=== PATIENT | female | born 1990 | race Caucasian/White ===

== ENCOUNTER → 2018-05-29 | Outpatient (CLI) | payer OTHER | END | disposition home or self-care (01) | LOC: LAB 09:50 → LAB SHORT 09:50 | DX: Z34.00 Encounter for supervision of normal first pregnancy, unspecified trimester (principal) | CPT/HCPCS: 87081; 87653 ==

== ENCOUNTER 2018-06-29 12:56 | Inpatient (IN) | payer OTHER ==
[~2018-06-29] VITALS: Ht 165.1 cm; Wt 0.4 kg
[2018-06-29 14:56] LABS: Creatinine, Urine Random 58.2 mg/dL (27.00-270.00); Protein, Urine Random 24.4 mg/dL (0.0-11.9); Protein/Creat Ratio, Ur Random 0.4
[2018-06-29 15:00] LABS: BASOPHILS ABSOLUTE AUTO 0.03 K/mm3 (0.00-0.23); BASOPHILS PERCENT AUTO 0 % (0-2); EOSINOPHILS ABSOLUTE AUTO 0.05 K/mm3 (0.00-0.68); EOSINOPHILS PERCENT AUTO 0 % (0-6); Hemoglobin 13.7 g/dL (11.5-16.0); IMMATURE GRAN PERCENT AUTO 1 % (0-1); LYMPHOCYTES ABSOLUTE AUTO 2.03 K/mm3 (0.84-5.20); LYMPHOCYTES PERCENT AUTO 16 % (21-46); MONOCYTES PERCENT AUTO 5 % (4-13); Mean Corpuscular HGB Conc 34.3 g/dL (31.5-36.5); Mean Corpuscular Volume 91 fL (80-100); NEUTROPHILS ABSOLUTE AUTO 9.99 K/mm3 (1.96-9.15); NEUTROPHILS PERCENT AUTO 78 % (41-73); Platelet Count 238 K/mm3 (150-400); RDW Coefficient Variation 12.9 % (11.7-14.2); RDW Standard Deviation 42.4 fL (35.1-46.3); Red Blood Cell Count 4.42 M/mm3 (3.80-5.20)
[2018-06-29 15:10] LABS: Alanine Aminotransfer (ALT/SGP 23 U/L (12-78); Albumin, Blood 2.7 g/dL (3.4-5.0); Albumin/Globulin Ratio 0.7 (0.8-1.8); Alk Phos 197 U/L (50-136); Anion Gap 9 mmol/L (6-16); Aspartate Aminotrans (AST/SGOT 10 U/L (12-37); Bilirubin, Total 0.2 mg/dL (0.1-1.0); Blood Urea Nitrogen 8 mg/dL (8-24); Bun/Creatinine Ratio 14.2 (12.0-20.0); CO2, Blood 24 mmol/L (21-32); Calcium, Blood 8.9 mg/dL (8.5-10.1); Chloride, Blood 109 mmol/L (98-108); Creatinine, Blood 0.57 mg/dL (0.40-1.00); Globulin, Blood 4.1 g/dL (2.2-4.0); Glomerular Filtration Rate >60 (60-); Glucose, Blood 87 mg/dL (70-99); Potassium, Blood 3.5 mmol/L (3.5-5.5); Sodium, Blood 142 mmol/L (136-145); Total Protein, Blood 6.8 g/dL (6.4-8.2)
[2018-06-29] MEDS ORDERED: Verotin-Gr Cap1 EACH PO (16:59)
[2018-07-01 06:12] LABS: Hematocrit 32.7 % (33.0-51.0); Hemoglobin 11.1 g/dL (11.5-16.0); Mean Corpuscular HGB 30.4 pg (26.0-34.0); Mean Corpuscular HGB Conc 33.9 g/dL (31.5-36.5); Mean Corpuscular Volume 90 fL (80-100); Mean Platelet Volume 11.1 fL (9.1-12.4); Platelet Count 206 K/mm3 (150-400); RDW Coefficient Variation 13.4 % (11.7-14.2); RDW Standard Deviation 43.9 fL (35.1-46.3); Red Blood Cell Count 3.65 M/mm3 (3.80-5.20); White Blood Cell Count 18.86 K/mm3 (4.00-11.30)
--- NOTE | 2018-07-01 10:52 | NUR ---
CONSULT. BABY IS WAKING MORE FOR FEEDINGS, ABOUT 24 HOURS OLD NOW. MOMS NIPPLES ARE QUITE SORE. BABY HAS A STRONG SUCK WHEN COORDINATED ON A FINGER, BUT STARTS OUT BITING AND TONGUE SUCKING. INSTRUCT/DEMO POSITIONING TO HELP OBTAIN A DEEPER ASYMETRIC LATCH AND FURTHER WIDEN THE LATCH UNTIL COMFORTABLE, MOM COULD FEEL THE DIFFERENCE AND ABLE TO RETURN DEMO. INSTRUCT IN CHANGES TO EXPECT DURING THE FIRST WEEK WITH BABY AND WITH FEEDINGS AND REFERRED TO [facility] AND PAGE 18 OF [facility] FOR PHOTOS AND INFORMATION. QUESTIONS ANSWERED.
--- NOTE | 2018-07-01 13:25 | NUR ---
MOTHER EXHAUSTED AND NEEDING TO SLEEP. BABY TO NURSERY AND HER AND FOB WILL SLEEP AND WILL CALL WHEN READY FOR BABY BACK. PARENTS THINKING THEY SHOULD STAY ONE MORE NIGHT TO GET MORE HELP WITH CARE BUT WILL DECIDE WHEN THEY WAKE UP. VSS. DENIES NEED FOR PAIN MEDICATIONS EVEN THOUGH SHE ACTS LIKE SHE IS PRETTY UNCOMFORTABLE WHEN SHE MOVES. LIGHTS OFF AND QUIET ROOM.
--- NOTE | 2018-07-02 15:29 | NUR ---
DISCHARGE SUMMARY PT DISCHARGED HOME. PT LEFT ROOM WITH STEADY GAIT AND RN ESCORT WITH SPOUSE AND JUST PRIOR TO THIS NOTE. PT EDUCATED ON ALL DISCHARGE INSTRUCTIONS AND VERBALIZED UNDERSTANDING. ALL QUESTIONS ANSWERED. PT AND SPOUSE AGREED TO FOLLOW UP AT [facility] TOMORROW AND THEN WITH OB.
== END 2018-07-02 15:20 | disposition home or self-care (01) | DRG 807 ==
LOC: OBS 12:56 → BC 12:56 → OBS 16:01 → BC 16:01
PROVIDERS: Advanced Practice Midwife; ADMIT Obstetrics & Gynecology
PROC: 10907ZC Drainage of Amniotic Fluid, Therapeutic from Products of Conception, Via Natural or Artificial Opening (ICD-10-PCS; 2018-06-29)
PROC: 3E033VJ Introduction of Other Hormone into Peripheral Vein, Percutaneous Approach (ICD-10-PCS; 2018-06-29)
PROC: 00HU33Z Insertion of Infusion Device into Spinal Canal, Percutaneous Approach (ICD-10-PCS; 2018-06-29)
PROC: 3E0R3BZ Introduction of Anesthetic Agent into Spinal Canal, Percutaneous Approach (ICD-10-PCS; 2018-06-29)
PROC: 10E0XZZ Delivery of Products of Conception, External Approach (ICD-10-PCS; principal; 2018-06-30)
PROC: 0UQG7ZZ Repair Vagina, Via Natural or Artificial Opening (ICD-10-PCS; 2018-06-30)
DX: O14.04 Mild to moderate pre-eclampsia, complicating childbirth (principal); Z37.0 Single live birth; Z3A.41 41 weeks gestation of pregnancy; K21.9 Gastro-esophageal reflux disease without esophagitis; O99.62 Diseases of the digestive system complicating childbirth; O71.4 Obstetric high vaginal laceration alone
CPT/HCPCS: 36415; 51702; 59025; 80053; 82570; 84156; 85025; 85027; J2590; J3010; J7120

== ENCOUNTER → 2020-10-26 | Outpatient (CLI) | payer OTHER ==
[~2020-10-26] MED LIST: Verotin-Gr Cap1 EACH PO
== END | disposition home or self-care (01) ==
LOC: LAB SHORT 10:30 → LAB 10:30
PROVIDERS: Obstetrics & Gynecology
DX: Z01.419 Encounter for gynecological examination (general) (routine) without abnormal findings (principal)
CPT/HCPCS: G0123

== ENCOUNTER → 2021-04-04 | Outpatient (CLI) | payer OTHER | END | disposition home or self-care (01) | LOC: LAB 12:11 → LAB SHORT 12:11 | DX: O09.93 Supervision of high risk pregnancy, unspecified, third trimester (principal) | CPT/HCPCS: 87081; 87150 ==

== ENCOUNTER 2021-10-15 22:27 | Observation (INO) | payer OTHER ==
[~2021-10-15] VITALS: Ht 165.1 cm; Wt 94.3 kg
[~2021-10-15 22:27] MED LIST changes: +OMEP20ER PO; +ONDA4ODT
[2021-10-16 00:09] LABS: BASOPHILS ABSOLUTE AUTO 0.04 K/mm3 (0.00-0.23); BASOPHILS PERCENT AUTO 0 % (0-2); EOSINOPHILS ABSOLUTE AUTO 0.03 K/mm3 (0.00-0.68); EOSINOPHILS PERCENT AUTO 0 % (0-6); Hematocrit 45.2 % (33.0-51.0); IMMATURE GRAN ABSOLUTE AUTO 0.09 K/mm3 (0.00-0.10); IMMATURE GRAN PERCENT AUTO 1 % (0-1); LYMPHOCYTES ABSOLUTE AUTO 1.89 K/mm3 (0.84-5.20); LYMPHOCYTES PERCENT AUTO 10 % (21-46); MONOCYTES ABSOLUTE AUTO 1.11 K/mm3 (0.16-1.47); MONOCYTES PERCENT AUTO 6 % (4-13); Mean Corpuscular HGB 29.4 pg (26.0-34.0); Mean Corpuscular HGB Conc 35.4 g/dL (31.5-36.5); Mean Corpuscular Volume 83 fL (80-100); Mean Platelet Volume 10.1 fL (9.1-12.4); NEUTROPHILS ABSOLUTE AUTO 15.68 K/mm3 (1.96-9.15); NEUTROPHILS PERCENT AUTO 83 % (41-73); Platelet Count 301 K/mm3 (150-400); RDW Coefficient Variation 12.1 % (11.7-14.2); RDW Standard Deviation 36.5 fL (35.1-46.3); Red Blood Cell Count 5.44 M/mm3 (3.80-5.20); White Blood Cell Count 18.84 K/mm3 (4.00-11.30)
[2021-10-16 00:27] LABS: Bilirubin, Total 0.6 mg/dL (0.1-1.0); Bun/Creatinine Ratio 11.3 (12.0-20.0); Calcium, Blood 9.6 mg/dL (8.5-10.1); Creatinine, Blood 0.71 mg/dL (0.40-1.00); Globulin, Blood 4.2 g/dL (2.2-4.0); Potassium, Blood 3.3 mmol/L (3.5-5.5); Total Protein, Blood 8.2 g/dL (6.4-8.2)
[2021-10-16 03:37] LABS: Influenza A, PCR NEGATIVE (NEGATIVE); Influenza B, PCR NEGATIVE (NEGATIVE); Resp Syncytial Virus, PCR NEGATIVE (NEGATIVE); SARS-Cov-2 (COVID-19) PCR, MMC NEGATIVE (NEGATIVE)
--- NOTE | 2021-10-16 04:45 | NUR ---
SUMMARY PT ARRIVED TO FLOOR IN NO DISTRESS. PT REPORTS SOME NAUSEA W/ DRY HEAVING, RESOLVED ON OWN. PT PAIN IS MINIMAL CURRENTLY. PT HAS REMAINED NPO. PT CURRENTLY RESTING COMFORTABLY.
--- NOTE | 2021-10-16 19:19 | NUR ---
SHIFT SUMMARY PT A&OX4, VSS/RA. S/P LAP CHARLIE, 4 STERI STRIPS DRY/INTACT. PAIN MANAGED WITH 5 MG NORCO. JUAN PO. VOIDING WELL. SBA TO BRP. AT BEDSIDE. WILL REPORT TO ONCOMING BRITT RN.
--- NOTE | 2021-10-17 00:02 | NUR ---
Labeled and stored Breast milk for Patient
--- NOTE | 2021-10-17 05:34 | NUR ---
POD 1 S/P LAP CHARLIE. PT VSS T/O NIGHT. DRESSINGS CDI. PT JUAN REG PO, NO C/O N/V, REP NO FLATUS YET, IS VOIDING URINE W/O DIFFICULTY. PAIN MGD W/1 NORCO W/REP RELIEF. PT INDEP IN ROOM, JUAN WELL, AMBULATION ENC PT JUAN. PT PUMPING BREASTMILK, ALT DUMPING AND STORING IN FRIDGE.
[2021-10-17] MEDS ORDERED: Norco 5-325 Ta1 EACH PO (12:08)
--- NOTE | 2021-10-17 13:15 | NUR ---
DISCHARGED IV DC'D. ABDOMINAL BINDER IN PLACE FOR COMFORT. REVIEWED DC INSTRUCTIONS W/PT AND SPOUSE; VERBALIZED UNDERSTANDING. SPOUSE TOOK PRESCRIPTION TO BE FILLED PRIOR TO PT DISCHARGING. PT LEFT UNIT IN WC W/POSSESSIONS AND DC PAPERWORK IN HAND ACCOMPANIED BY SIGNIFICANT OTHER.
== END 2021-10-17 13:10 | disposition home or self-care (01) ==
LOC: ER 22:27 → SURS 22:28 → ER 10-16 03:09 → SURS 10-16 03:15
PROVIDERS: Emergency Medicine; ADMIT Surgery
DX: K80.00 Calculus of gallbladder with acute cholecystitis without obstruction (principal); K21.9 Gastro-esophageal reflux disease without esophagitis; Z88.0 Allergy status to penicillin; Z88.6 Allergy status to analgesic agent; Z20.822 Contact with and (suspected) exposure to COVID-19
CPT/HCPCS: 0241U; 36415; 74300; 76705; 80053; 83690; 85025; 88304; 96374; 96375; 96376; A9270; C1729; C9113; G0378; J0696; J1100; J2405; J2704; J2710; J3010; J7120

== ENCOUNTER → 2022-06-25 | Outpatient (CLI) | payer OTHER ==
[~2022-06-25] MED LIST changes: +Norco 5-325 Ta1 EACH PO
== END | disposition home or self-care (01) ==
LOC: LAB 14:32 → LAB SHORT 14:32
DX: R82.81 Pyuria (principal)
CPT/HCPCS: 87077; 87086; 87147; 87186

== ENCOUNTER → 2022-07-19 | Outpatient (CLI) | payer OTHER | END | disposition home or self-care (01) | LOC: LAB 19:02 → LAB SHORT 19:02 | DX: N39.0 Urinary tract infection, site not specified (principal) | CPT/HCPCS: 87086 ==